=== PATIENT | female | born 1960 | race Caucasian/White ===

== ENCOUNTER 2017-10-11 21:46 | Emergency (ER) | payer MEDICAID ==
[~2017-10-11] VITALS: Ht 160 cm; Wt 89.8 kg
[2017-10-11 21:46] VITALS: BP_SYST 146
[2017-10-12 00:30] VITALS: BP_SYST 135
== END 2017-10-12 00:30 | disposition home or self-care (01) ==
LOC: SED 21:46
DX: S92.511A Displaced fracture of proximal phalanx of right lesser toe(s), initial encounter for closed fracture (principal); I10 Essential (primary) hypertension; M32.9 Systemic lupus erythematosus, unspecified; Z86.73 Personal history of transient ischemic attack (TIA), and cerebral infarction without residual deficits; W22.8XXA Striking against or struck by other objects, initial encounter; Y93.89 Activity, other specified; Y92.89 Other specified places as the place of occurrence of the external cause; Y99.8 Other external cause status
CPT/HCPCS: 99284